=== PATIENT | female | born 1945 | race Two or more races ===

== ENCOUNTER 2018-03-10 08:48 | Outpatient (CLI) | payer OTHER ==
[~2018-03-10 08:48] MED LIST: HYDROCHLOROTHIA25 MG PO
== END 2018-03-10 14:39 | disposition home or self-care (01) ==
LOC: LAB 08:48
DX: J45.998 Other asthma (principal); E11.65 Type 2 diabetes mellitus with hyperglycemia; E78.2 Mixed hyperlipidemia; I50.21 Acute systolic (congestive) heart failure; Z12.11 Encounter for screening for malignant neoplasm of colon; E03.8 Other specified hypothyroidism; D68.8 Other specified coagulation defects; E55.9 Vitamin D deficiency, unspecified

== ENCOUNTER 2018-04-18 09:30 | Outpatient (CLI) | payer OTHER | END 2018-04-18 09:38 | disposition home or self-care (01) | LOC: RAD 09:30 | DX: S32.110A Nondisplaced Zone I fracture of sacrum, initial encounter for closed fracture (principal); S32.82XA Multiple fractures of pelvis without disruption of pelvic ring, initial encounter for closed fracture; S32.810A Multiple fractures of pelvis with stable disruption of pelvic ring, initial encounter for closed fracture; M48.48XA Fatigue fracture of vertebra, sacral and sacrococcygeal region, initial encounter for fracture; E03.8 Other specified hypothyroidism; E04.2 Nontoxic multinodular goiter; R13.19 Other dysphagia ==

== ENCOUNTER 2018-07-30 16:13 | Emergency (ER) | payer OTHER ==
[~2018-07-30] VITALS: Ht 144.8 cm; Wt 68.0 kg
[2018-07-30] MEDS ORDERED: COZAAR100 MG (17:22)
[2018-07-30] MEDS ORDERED: HYDROCHLOROTH12.5 MG (17:23)
== END 2018-07-30 22:59 | disposition home or self-care (01) ==
LOC: ER 16:13
DX: K58.8 Other irritable bowel syndrome (principal); J32.0 Chronic maxillary sinusitis; R10.31 Right lower quadrant pain

== ENCOUNTER → 2018-09-14 | Outpatient (CLI) | payer OTHER ==
[~2018-09-14] MED LIST changes: +COZAAR100 MG; +HYDROCHLOROTH12.5 MG
== END | disposition home or self-care (01) ==
LOC: RX STUDY 08:15
DX: R13.19 Other dysphagia (principal)

== ENCOUNTER 2019-01-31 08:51 | Outpatient (CLI) | payer OTHER | END 2019-01-31 09:11 | disposition home or self-care (01) | LOC: LAB 08:51 | DX: J45.998 Other asthma (principal); D64.89 Other specified anemias; J11.1 Influenza due to unidentified influenza virus with other respiratory manifestations ==

== ENCOUNTER 2021-04-16 14:39 | Outpatient (CLI) | payer OTHER | END 2021-04-16 14:54 | disposition home or self-care (01) | LOC: MAMO-SONO 14:39 | PROVIDERS: ATTEND Specialist | DX: Z12.31 Encounter for screening mammogram for malignant neoplasm of breast (principal) ==

== ENCOUNTER 2022-08-11 16:10 | Emergency (ER) | payer OTHER ==
[~2022-08-11] VITALS: Ht 144.8 cm; Wt 64.9 kg
== END 2022-08-11 19:01 | disposition home or self-care (01) ==
LOC: ER 16:10
DX: M77.8 Other enthesopathies, not elsewhere classified (principal); I10 Essential (primary) hypertension; Z91.041 Radiographic dye allergy status

== ENCOUNTER → 2022-12-23 | Outpatient (CLI) | payer OTHER | END | disposition home or self-care (01) | LOC: NUCLEAR 07:00 | PROVIDERS: ATTEND Internal Medicine Cardiovascular Disease | DX: I25.10 Atherosclerotic heart disease of native coronary artery without angina pectoris (principal) | CPT/HCPCS: 78452; 93017; A9500; J0153 ==

== ENCOUNTER 2023-03-17 20:16 | Emergency (ER) | payer OTHER ==
[~2023-03-17] VITALS: Ht 149.9 cm; Wt 71.2 kg
[2023-03-17] MEDS ORDERED: ROSUVASTATIN CAL5 MG PO (20:33)
== END 2023-03-17 23:53 | disposition home or self-care (01) ==
LOC: ER 20:16
DX: S00.33XA Contusion of nose, initial encounter (principal); W18.30XA Fall on same level, unspecified, initial encounter; Y93.89 Activity, other specified; Y92.89 Other specified places as the place of occurrence of the external cause; Y99.9 Unspecified external cause status; J34.89 Other specified disorders of nose and nasal sinuses; Z88.8 Allergy status to other drugs, medicaments and biological substances

== ENCOUNTER 2024-11-13 16:18 | Emergency (ER) | payer OTHER ==
[~2024-11-13] VITALS: Ht 147.3 cm; Wt 67.1 kg
[~2024-11-13 16:18] MED LIST changes: +ROSUVASTATIN CAL5 MG PO
[2024-11-13 16:56] VITALS: BP 157/82; O2SAT 97
[2024-11-13] MEDS ORDERED: FAMOTIDINE/PF 20 MG/2 ML VIAL IV ONE (17:45)
[2024-11-13] MEDS ORDERED: GUAIFENESIN/DEXTROMETHORPHAN 10ML BLIST.PACK PO ONE ×2 (17:45→17:46)
[2024-11-13] MEDS ORDERED: 0.9 % SODIUM CHLORIDE 500 ML IV ONE (17:45)
[2024-11-13] MEDS ORDERED: ONDANSETRON HCL 2 MG/ML VIAL IV ONE (17:45)
[2024-11-13] MEDS ORDERED: FAMOTIDINE/PF 20 MG/2 ML VIAL ONE (17:46)
[2024-11-13] MEDS ORDERED: ONDANSETRON HCL 2 MG/ML VIAL ONE (17:46)
[2024-11-13 19:14] LABS: PH,URINE 5.5 (5.0-8.0); URINE APPEARANCE Clear; URINE BILIRRUBIN Negative (NEGATIVE); URINE BLOOD Small; URINE COLOR Yellow; URINE GLUCOSE Negative (NEGATIVE); URINE KETONE Negative (NEGATIVE); URINE LEUKOCYTE Negative; URINE NITRATE Negative; URINE PROTEIN Negative (NEGATIVE); URINE UROBILINOGEN 0.2 E.U./dl
[2024-11-13 19:18] LABS: URINE BACTERIA 68.5 uL (0.0-1933); URINE RBC 18.8 uL (0.0-20.8); URINE WBC 11.2 uL (0.0-23.2)
[2024-11-13 19:24] LABS: URINE CAST 0.29 uL (0.0-1.40)
[2024-11-13] MEDS ORDERED: OSELTAMIVIR PHOSPHATE 75 MG CAPSULE PO ONE ×2 (19:30→19:34)
[2024-11-13 19:35] LABS: HEMATOCRIT 38.3 % (36.0-45.00); HEMOGLOBIN 12.8 g/dL (12.0-15.00); MEAN CELL VOLUME 81.2 fL (80.00-100.00); MEAN CORPUSCULAR HEMOGLOBIN 27.1 pg (27.00-32.0); MEAN CORPUSCULAR HGB CONC 33.4 g/dl (32.0-36.0); PLATELET COUNT 226 K/uL (150-450); RED BLOOD COUNT 4.72 M/uL (4.00-6.00); RED CELL DISTRIBUTION WIDTH 13.6 % (11.5-14.5)
[2024-11-13 19:41] LABS: ALBUMIN 3.8 gm/dL (3.4-5.0); BILIRUBIN TOTAL 0.69 mg/dL (0.3-1.2); CREATININE SERUM 0.73 mg/dL (0.55-1.02); GFR 76.51; GLOBULINA 4.4 G/DL (2.4-3.5); POTASSIUM 3.38 mEq/L (3.5-5.1); TOTAL PROTEIN 8.2 gm/dL (6.4-8.2)
[2024-11-13] MEDS ORDERED: ZYRTEC10 MG PO (21:01)
[2024-11-13] MEDS ORDERED: QC TUSSIN DM L118 ML PO (21:01)
[2024-11-13] MEDS ORDERED: OSEL75CA PO (21:01)
== END 2024-11-13 21:20 ==
LOC: ER 16:21
PROVIDERS: General Practice
DX: J10.1 Influenza due to other identified influenza virus with other respiratory manifestations (principal); R10.31 Right lower quadrant pain; Z20.822 Contact with and (suspected) exposure to COVID-19; Z88.8 Allergy status to other drugs, medicaments and biological substances; I10 Essential (primary) hypertension

== ENCOUNTER 2025-03-13 15:04 | Emergency (ER) | payer OTHER ==
[~2025-03-13] VITALS: Ht 144.8 cm; Wt 64.0 kg
[~2025-03-13 15:04] MED LIST changes: +OSEL75CA PO; +QC TUSSIN DM L118 ML PO; +ZYRTEC10 MG PO
[2025-03-13] MEDS ORDERED: HYDROCHLOROTH12.5 M2 PO (15:23)
[2025-03-13] MEDS ORDERED: METHYLPREDNISOLONE SOD SUCC 125 MG VIAL IV ONE (16:45)
[2025-03-13] MEDS ORDERED: DIPHENHYDRAMINE HCL 50 MG/ML VIAL 1ML IV ONE (16:45)
[2025-03-13] MEDS ORDERED: METHYLPREDNISOLONE SOD SUCC 125 MG VIAL ONE (16:50)
[2025-03-13] MEDS ORDERED: DIPHENHYDRAMINE HCL 50 MG/ML VIAL 1ML ONE (16:50)
[2025-03-13 17:29] LABS: HEMATOCRIT 40.3 % (36.0-45.00); HEMOGLOBIN 13.2 g/dL (12.0-15.00); MEAN CELL VOLUME 82.9 fL (80.00-100.00); MEAN CORPUSCULAR HEMOGLOBIN 27.1 pg (27.00-32.0); MEAN CORPUSCULAR HGB CONC 32.7 g/dl (32.0-36.0); PLATELET COUNT 301 K/uL (150-450); RED BLOOD COUNT 4.86 M/uL (4.00-6.00); RED CELL DISTRIBUTION WIDTH 13.8 % (11.5-14.5)
== END 2025-03-13 18:06 | disposition home or self-care (01) ==
LOC: ER 15:05
PROVIDERS: General Practice
DX: T78.40XA Allergy, unspecified, initial encounter (principal); I10 Essential (primary) hypertension; Z91.041 Radiographic dye allergy status
CPT/HCPCS: 36415; 96365; 99282; J1200; J3490

== ENCOUNTER 2025-11-01 15:51 | Emergency (ER) | payer OTHER ==
[~2025-11-01] VITALS: Ht 149.9 cm; Wt 64.4 kg
[~2025-11-01 15:51] MED LIST changes: +HYDROCHLOROTH12.5 M2 PO
[2025-11-01 16:56] VITALS: O2SAT 100
[2025-11-01] MEDS ORDERED: LOSARTAN POTASSIUM 50 MG TABLET PO ONE (17:15)
[2025-11-01 18:05] LABS: BASO % 0.6 % (0.1-1.2); EOS # 0.07 (0.04-0.54); EOS % 0.8 % (0.7-7.0); LYMPH # 2.11 (1.18-3.74); LYMPH % 24.7 % (19.3-53.1); MEAN PLATELET VOLUME 10.60 fl (9.4-12.4); MONO # 0.76 (0.24-0.82); MONO % 8.9 % (4.7-12.5); NEUT # 5.52 (1.56-6.13); NEUT % 64.8 % (34.0-71.1); RED CELL DISTRIBUTION WIDTH 13.2 % (11.6-14.4)
[2025-11-01 18:06] LABS: ERYTHROCYTE SEDIMENTATION RATE 18 mm/hr (0-30)
[2025-11-01 18:42] LABS: INR 0.98
[2025-11-01 18:53] LABS: ALT/SGPT 18 U/L (12-78); AST/SGOT 17 U/L (15-37); BILIRUBIN TOTAL 0.50 mg/dL (0.3-1.2); BUN CREA RATIO 30 (7.0-25.0); CREATININE SERUM 0.69 mg/dL (0.55-1.02); GFR 81.45; GLOBULINA 4.2 G/DL (2.4-3.5); GLUCOSE FASTING 97 mg/dL (65-100); OSMOLALITY SERUM 288 MOSM/KG (275-295)
[2025-11-01] MEDS ORDERED: NITROGLYCERIN 0.4 MG TAB.SUBL SL ONE ×2 (19:00→19:05)
[2025-11-01 19:38] LABS: URINE APPEARANCE Clear; URINE BILIRRUBIN Negative (NEGATIVE); URINE BLOOD Negative; URINE COLOR Yellow; URINE GLUCOSE Negative (NEGATIVE); URINE KETONE Negative (NEGATIVE); URINE LEUKOCYTE Negative; URINE NITRATE Negative; URINE PROTEIN Negative (NEGATIVE); URINE UROBILINOGEN 0.2 E.U./dl
[2025-11-01 19:42] LABS: URINE BACTERIA 18.2 uL (0.0-1933); URINE EPITHELIAL CELLS 2.1 uL (0.0-38.8); URINE RBC 7.3 uL (0.0-20.8)
[2025-11-01 19:58] LABS: TYPE CELLS SQUAMOUS; URINE CAST 0.00 uL (0.0-1.40); URINE WBC 0.9 uL (0.0-23.2)
[2025-11-01] MEDS ORDERED: ORPHENADRINE CITRATE 30 MG/ML AMPUL IM STA (20:21)
[2025-11-01] MEDS ORDERED: 0.9 % SODIUM CHLORIDE 1,000 ML IV STA (20:21)
[2025-11-01] MEDS ORDERED: KETOROLAC TROMETHAMINE 30 MG VIAL IM STA (20:21)
[2025-11-01] MEDS ORDERED: ORPHENADRINE CITRATE 30 MG/ML AMPUL ONE (21:28)
[2025-11-01] MEDS ORDERED: KETOROLAC TROMETHAMINE 30 MG VIAL ONE (21:28)
[2025-11-01] MEDS ORDERED: CLONIDINE HCL 0.1 MG TABLET PO STA (21:55)
[2025-11-01 22:00] VITALS: BP 160/70
[2025-11-01] MEDS ORDERED: 8 HOUR PAIN RE650 M1 PO (23:11)
== END 2025-11-01 23:28 | disposition home or self-care (01) ==
LOC: ER 15:51
PROVIDERS: Physician Assistant Medical
DX: R07.89 Other chest pain (principal); M94.0 Chondrocostal junction syndrome [Tietze]; I16.9 Hypertensive crisis, unspecified; I10 Essential (primary) hypertension; E03.8 Other specified hypothyroidism; Z91.041 Radiographic dye allergy status
CPT/HCPCS: 36415; 71046; 93005; 96365; 96372; 99283; J1885; J2360; J7030